=== PATIENT | female | born 1990 ===

== ENCOUNTER 2020-10-02 09:59 | Emergency (ER) | payer SELFPAY ==
[~2020-10-02] VITALS: Ht 175.3 cm; Wt 79.4 kg
[2020-10-02 10:09] VITALS: Ht 175.3 cm; Wt 79.4 kg
[2020-10-02] MEDS ORDERED: PERCOCET 5-3251 TAB PO (12:22)
[2020-10-02 12:31] VITALS: BP 118/65
== END 2020-10-02 12:52 | disposition home or self-care (01) ==
LOC: D.ER 09:59
DX: S52.502A Unspecified fracture of the lower end of left radius, initial encounter for closed fracture (principal); S52.612A Displaced fracture of left ulna styloid process, initial encounter for closed fracture; W01.0XXA Fall on same level from slipping, tripping and stumbling without subsequent striking against object, initial encounter; Y93.9 Activity, unspecified; Y92.9 Unspecified place or not applicable